=== PATIENT | male | born 1980 ===

== ENCOUNTER 2016-11-01 10:24 | Day surgery (SDC) | payer OTHER ==
[2016-10-24 13:17] VITALS: BMI 29.4
[2016-11-01] MEDS ORDERED: Propofol 10 mg/ml Inj (20 ML) ONE (10:57)
[2016-11-01] MEDS ORDERED: Lactated Ringer's 1,000 ML IV SCH (11:44)
[2016-11-01 12:35] VITALS: BP 110/75; PULSE 90; RESP 18; TEMP 97.8; O2SAT 18
== END 2016-11-01 13:15 | disposition home or self-care (01) ==
LOC: ENDO 10:24
PROVIDERS: ATTEND Internal Medicine Gastroenterology
DX: K26.9 Duodenal ulcer, unspecified as acute or chronic, without hemorrhage or perforation (principal); K29.80 Duodenitis without bleeding; K29.50 Unspecified chronic gastritis without bleeding; K20.9 Esophagitis, unspecified; K44.9 Diaphragmatic hernia without obstruction or gangrene; D50.9 Iron deficiency anemia, unspecified
CPT/HCPCS: 43239; 88305; 88312; 88342; J2704; J7040; J7120